=== PATIENT | male | born 1940 | race Caucasian/White ===

== ENCOUNTER → 2019-07-10 09:10 | Outpatient (CLI) | payer MEDICARE, OTHER, SELFPAY ==
--- NOTE | 2019-07-10 | DI.US.S_ITS ---
PROCEDURE: US SCROTUM INDICATIONS: SCROTAL PAIN TECHNIQUE: Real-time scanning was performed of the scrotum and testicles, with image documentation. Color and pulse Doppler interrogation was performed of both testicles. COMPARISON: None. FINDINGS: Right: Testicle is normal in size at 3.8 x 2.8 x 2 cm, and homogenous in echotexture. Scattered microlithiasis can be seen. Epididymis is normal in overall size and morphology. Within the right scrotum, superior to the testicle, there is a cyst seen that measures 2.6 x 2.2 x 1.4 cm. There is a small right-sided varicocele. A mild to moderate right-sided hydrocele is seen. Overlying scrotal skin is normal in thickness. Left: Testicle is normal in size at 2.7 x 1.9 cm, and homogeneous in echotexture. Scattered microlithiasis can be seen on the left. Epididymis is normal in overall size and morphology. There is a small left-sided varicocele. There is a mild to moderate left-sided hydrocele. Overlying scrotal skin is normal in thickness. Doppler: Color and pulse Doppler demonstrate normal and symmetric arterial flow in both testicles. No abnormal vascularity can be seen of the epididymis. IMPRESSION: No abnormal vascularity can be seen of the epididymis on either side to suggest epididymitis. Superior to the right testicle, there is a simple appearing cyst seen that measures up to 2.6 cm. Bilateral orqf-sj-mkruvinw hydroceles are seen. Small bilateral varicoceles are seen. Incidental note is made of bilateral microlithiasis. Dictated by: Morales Obrien M.D. on 07/10/2019 at 9:52 Approved by: Morales Obrien M.D. on 07/10/2019 at 10:31
== END ==
PROVIDERS: Family Provider Family Medicine; PCP Family Medicine; Visit Provider Urology
DX: N43.3 Hydrocele, unspecified (principal); I86.1 Scrotal varices
CPT/HCPCS: 76870

== ENCOUNTER → 2021-06-27 14:24 | Outpatient (CLI) | payer MEDICARE, OTHER, SELFPAY ==
--- NOTE | 2021-06-27 14:28 | DI.ECHO.S_ITS ---
[facility]---------+ [facility] +---------+ : : [address] : [place] : : : : [id number] : : : : Phone: [phone] Echocardiogram Report + + :Name: NILO BROOKS Study Date: 06/27/2021 Height: 69 in : :[facility] ReadingLocation: Weight: 202 lb : : Gender: Male BSA: 2.1 m2 : :: 1940 Age: 80 yrs BP: 125/70 mmHg: :Reason For Study: TACHYCARDIA : :Ordering Physician: PAWEL, : :NILO Performed By: Danny Drummond : :Referring: NILO ARMAS : + + Interpretation Summary The ejection fraction is estimated to be 60-65%. Grade I diastolic dysfunction. The right ventricle is normal in size and function. The left atrium is mildly dilated. The prosthetic aortic valve is well-seated. There is mild perivalvular regurgitation around the prosthetic aortic valve. There is mild aortic regurgitation. Unable to estimate PASP. Procedure: A two-dimensional transthoracic echocardiogram with color flow and Doppler was performed. The study quality was technically difficult. Comparison is made with the echocardiogram of 12/13/2016. Left Ventricle: The left ventricle is normal in size. Left ventricular wall thickness is mildly increased. Left ventricular systolic function is normal. The ejection fraction is estimated to be 60-65%. There are no focal wall motion abnormalities. Diastolic parameters suggest a relaxation abnormality of the left ventricle, consistent with probable normal filling pressures. Right Ventricle: The right ventricle is normal in size and function. Atria: The left atrium is mildly dilated. There is no Doppler evidence for an interatrial shunt. Mitral Valve: There is mild mitral annular calcification. There is trace mitral regurgitation. 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 There is mild perivalvular regurgitation around the prosthetic aortic valve. The prosthetic aortic valve is well-seated. The aortic valve mean gradient is 17 mmHg. The peak aortic velocity is 2.8 m/sec. Valve area difficult to calculate due to limited measurement of the LVOT. DVI = 0.55. There is mild aortic regurgitation. Tricuspid Valve: The tricuspid valve is normal in structure and function. There is trace tricuspid regurgitation. Pulmonary artery pressures cannot be estimated because of the lack of a measurable TR jet velocity but the IVC suggests a CVP of around 3 mmHg. Pulmonic Valve: The pulmonic valve is not well visualized. There is no pulmonic valvular regurgitation. Great Vessels: The aortic root is not well visualized. The ascending aorta could not be visualized. The IVC is of normal diameter and collapses greater than 50% with a sniff. This suggests a low right atrial pressure of 3 mm Hg. Pericardium/ Pleura There is no pericardial effusion. There is no pleural effusion. MMode/2D Measurements & Calculations LVIDd: 5.2 cm LA dimension: 2.8 cm LVIDs: 3.0 cm LA A2 area: 16.3 cm2 FS: 42.3 % LA A4 area: 20.1 cm2 IVSd: 1.3 cm LA length (vol): 5.5 cm LVPWd: 1.0 cm LA vol: 50.2 ml LV erickson. diameter/BSA (cm/m^2): 2.5 LA vol index: 24.2 ml/m2 LV sys. diameter/BSA (cm/m^2): 1.4 RA long axis: 5.2 cm TAPSE_phl: 2.9 cm Doppler Measurements & Calculations Ao V2 max: 277.0 cm/sec LVOT Max Saad: 152.0 cm/sec Ao V2 mean: 192.0 cm/sec LV V1 max P.2 mmHg Ao max P.0 mmHg LV V1 VTI: 33.8 cm Ao mean P.0 mmHg sev ratio: 0.60 Ao V2 VTI: 56.4 cm MV E max saad: 63.4 cm/sec PA V2 max: 106.0 cm/sec MV A max saad: 85.9 cm/sec PA V2 mean: 79.5 cm/sec MV E/A: 0.74 PA mean P.0 mmHg Med Peak E' Saad: 7.0 cm/sec PA pr(Accel): 39.8 mmHg E/E' med: 9.1 Lat Peak E' Saad: 7.7 cm/sec E/E' lat: 8.2 E/e' average: 8.7 MV dec time: 0.34 sec AV VR_phl: 0.55 MV P1/2t-pr_phl: 100.0 msec Reading Physician:05:03 PM
== END ==
PROVIDERS: Family Provider Family Medicine; PCP Family Medicine; Referring Provider Physician Assistant Medical; Visit Provider Physician Assistant Medical
DX: I35.1 Nonrheumatic aortic (valve) insufficiency (principal); I47.2 Ventricular tachycardia; Z95.2 Presence of prosthetic heart valve
CPT/HCPCS: 93306

== ENCOUNTER → 2021-11-02 10:38 | Outpatient (CLI) | payer MEDICARE, OTHER, SELFPAY ==
[2021-11-02 12:49] LABS: COVID19 -Nasal RAPID Negative (Negative)
== END ==
PROVIDERS: Family Provider Family Medicine; PCP Family Medicine; Visit Provider Physician Assistant
DX: Z20.822 Contact with and (suspected) exposure to COVID-19 (principal)
CPT/HCPCS: 87635; C9803

== ENCOUNTER → 2021-11-04 08:19 | Outpatient (CLI) | payer MEDICARE, OTHER, SELFPAY ==
--- NOTE | 2021-11-04 19:16 | DI.NM.S_ITS ---
DATE OF SERVICE: 11/04/2021 PROCEDURE PERFORMED: Exercise treadmill, converted to pharmacologic vasodilator stress and rest myocardial perfusion study with gating to assess ejection fraction and regional wall motion. ORDERING PROVIDER: Dr. Neptali Hansen. 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 CARDIAC STRESS: The patient was initially stressed on the treadmill and was able to complete 3 minutes of a standard Darnell protocol but had a significantly blunted heart rate response, likely due to concurrent beta jonathan therapy, and was able to achieve a maximum heart rate of only 102 BPM (73% of his predicted maximum). He had a normal blood pressure response and denied any chest discomfort. Given his blunted heart rate response, he was given 0.4 mg of regadenoson with a normal hemodynamic response and again had no chest discomfort. His resting ECG shows sinus rhythm with a RBBB and associated ST-segment abnormalities. With stress, there are no significant ST-segment shifts or arrhythmias except for occasional PACs, at times, in a bigeminal pattern. Per protocol, 26.1 millicuries of technetium-99m Myoview was injected and he was imaged 40 minutes later using a gated SPECT acquisition protocol. Earlier in the day while at rest, he had been injected with 14.0 millicuries of technetium- 99m Myoview and was imaged 30 minutes later, again using a quantitated gated SPECT acquisition protocol. FINDINGS: 1. Raw data: There is fairly good myocardial tracer uptake although with clear evidence for diaphragmatic attenuation. The lung/heart ratio is normal at 0.29 with a normal TID ratio of 0.75. 2. Quantitated gated SPECT: The post-stress ejection fraction is estimated at 72% without any focal wall motion abnormality and specifically the inferior wall has normal contractility. The resting ejection fraction is calculated at 72%, as well with a resting end-diastolic volume of 110 mL. 3. Myocardial perfusion imaging: Post-stress supine images show a moderate perfusion defect in the proximal and mid inferior wall, extending into the distal inferior wall, in a pattern consistent with diaphragmatic attenuation artifact, supported by its near-complete resolution on the prone images, although a very subtle defect remains present in the mid inferior wall. The resting images show an identical perfusion pattern without any significant improvement in the inferior wall defect. There are no other perfusion defects. IMPRESSION: 1. Probable normal myocardial perfusion study. 2. Moderate intensity fixed proximal to mid inferior wall perfusion defect that nearly completely resolves on prone imaging, most consistent with diaphragmatic attenuation artifact although previous nontransmural myocardial infarction cannot be entirely excluded. There is no evidence for any myocardial ischemia. 3. Normal left ventricular systolic function without any focal wall motion abnormality and specifically the inferior wall appears to have normal contractility. 4. Significantly reduced exercise capacity with a blunted heart rate response, likely due to beta jonathan therapy, but no angina or ECG evidence of ischemia. He had occasional PACs, but no concerning arrhythmias. Tao Platt - MICHAEL/jordon/bryant doc#: [id number]/job#: [id number] dd: 11/04/2021 17:23:00 dt: 11/04/2021 18:35:00 DICTATING MD/COPIES TO: Oracio Rubio MD; Neptali Hansen MD COPIES MNE: ADOLPH;
== END ==
PROVIDERS: Family Provider Family Medicine; PCP Internal Medicine; Referring Provider Internal Medicine Cardiovascular Disease; Visit Provider Internal Medicine Cardiovascular Disease
DX: I47.2 Ventricular tachycardia (principal); I25.10 Atherosclerotic heart disease of native coronary artery without angina pectoris
CPT/HCPCS: 78452; 93017; A9502; J2785

== ENCOUNTER → 2024-03-06 12:22 | Outpatient (CLI) | payer MEDICARE, OTHER, SELFPAY ==
--- NOTE | 2024-03-06 12:25 | DI.ECHO.S_ITS ---
[facility] +---------+ [facility] : : [address] : : [place] : : [id number] : : Phone: [phone] Echocardiogram Report + + :Name: NILO BROOKS Study Date: 03/06/2024 Height: 69 in : :[facility] ReadingLocation: Weight: 187 lb : : Gender: Male BSA: 2.0 m2 : :: 1940 Age: 83 yrs BP: 132/64 mmHg: :Reason For Study: ATRIAL FIBRILLATION : :Ordering Physician: URSULA, : :ALIVIA Moon Performed By: Duane Mensah : :Referring: ALIVIA VERGARA : + + Interpretation Summary The ejection fraction is estimated to be 65-70%. There is mild concentric left ventricular hypertrophy. There is a bioprosthetic aortic valve. There is mild perivalvular regurgitation around the prosthetic aortic valve. The peak aortic velocity is 2.9 m/sec. The peak aortic velocity on the previous exam was 2.77 m/sec. The right ventricular systolic pressure is estimated to be at least 28 mmHg based on an estimated right atrial pressure of 3 mm Hg. Procedure: A two-dimensional transthoracic echocardiogram with color flow and Doppler was performed. The study quality was technically adequate. Comparison is made with the echocardiogram of 06/27/2021. The patient was in atrial fibrillation with heart rates between 50-81 bpm during the exam. Left Ventricle: The left ventricle is normal in size. There is mild concentric left ventricular hypertrophy. The ejection fraction is estimated to be 65-70%. Left ventricular wall motion is normal. Right Ventricle: The right ventricle is mildly dilated. Right ventricular systolic function is borderline reduced. Atria: The left atrium is mildly dilated. Right atrial size is normal. The interatrial septum grossly appears intact with no obvious evidence for an atrial septal defect. Mitral Valve: The mitral valve is normal in structure and function. There is no mitral valve stenosis. There is trace mitral regurgitation. Aortic Valve: There is a bioprosthetic aortic valve. There is mild perivalvular regurgitation around the prosthetic aortic valve. The peak aortic velocity is 2.9 m/sec. The aortic valve mean gradient is 21.2 mmHg. The peak aortic velocity on the previous exam was 2.77 m/sec. Tricuspid Valve: The tricuspid valve is normal in structure and function. There is no tricuspid stenosis. The right ventricular systolic pressure is estimated to be at least 28 mmHg based on an estimated right atrial pressure of 3 mm Hg. There is a trace or physiologic amount of tricuspid regurgitation. Pulmonic Valve: The pulmonic valve is not well visualized. There is no pulmonic valvular stenosis. There is no pulmonic valvular regurgitation. Great Vessels: The aortic root is not well visualized. The ascending aorta could not be visualized. The IVC is of normal diameter and collapses greater than 50% with a sniff. This suggests a low right atrial pressure of 3 mm Hg. Pericardium/ Pleura There is no pericardial effusion. There is no pleural effusion. MMode/2D Measurements & Calculations LVIDd: 5.3 cm LVOT diam: 2.0 cm LVIDs: 3.3 cm Ao root diam: 3.7 cm FS: 37.1 % Ao Arch Diam (Prox Trans): 2.3 cm IVSd: 1.4 cm LVPWd: 1.3 cm LV erickson. diameter/BSA (cm/m^2): 2.6 LV sys. diameter/BSA (cm/m^2): 1.7 LA A2 area: 26.7 cm2 RA long axis: 4.9 cm LA A4 area: 19.7 cm2 RA area: 16.0 cm2 LA length (vol): 5.6 cm RA vol: 44.2 ml LA vol: 80.3 ml RA : 22.0 ml/m2 LA vol index: 40.0 ml/m2 IVC diam: 1.0 cm RVD1 (basal): 4.3 cm RVD2 (mid): 4.2 cm TAPSE: 1.8 cm Doppler Measurements & Calculations Ao V2 max: 290.0 cm/sec LVOT Max Donovan: 145.9 cm/sec Ao V2 mean: 219.0 cm/sec LV V1 max P.5 mmHg Ao max P.6 mmHg LV V1 VTI: 38.5 cm Ao mean P.2 mmHg DUNG(I,D): 1.8 cm2 Ao V2 VTI: 66.3 cm DUNG(V,D): 1.6 cm2 sev ratio: 0.58 DUNG indexed to BSA (cm^2/m^2): 0.91 MV E max donovan: 70.3 cm/sec TR max donovan: 252.6 cm/sec MV A max donovan: 100.7 cm/sec TR max P.5 mmHg MV E/A: 0.70 PA V2 max: 113.1 cm/sec Med Peak E' Donovan: 6.0 cm/sec PA V2 mean: 80.0 cm/sec E/E' med: 11.7 PA mean P.8 mmHg Lat Peak E' Donovan: 6.0 cm/sec E/E' lat: 11.6 E/e' average: 11.7 MV dec time: 0.26 sec SV([facility]): 120.5 ml Reading Physician:03:23 PM
== END ==
PROVIDERS: Family Provider Family Medicine; PCP Internal Medicine; Referring Provider Physician Assistant; Visit Provider Physician Assistant
DX: I35.1 Nonrheumatic aortic (valve) insufficiency (principal); I48.0 Paroxysmal atrial fibrillation; Z95.2 Presence of prosthetic heart valve
CPT/HCPCS: 93306

== ENCOUNTER → 2025-07-27 09:33 | Outpatient (CLI) | payer MEDICARE, OTHER, SELFPAY ==
--- NOTE | 2025-07-27 09:36 | DI.RAD.S_ITS ---
PROCEDURE: XR LUMBAR SPINE MIN 4V INDICATIONS: BACK PAIN TECHNIQUE: 5 views of the lumbar spine were acquired, including bilateral oblique views. COMPARISON: None. FINDINGS: Bones: 5 nonrib-bearing vertebrae are present. There is mild rightward curvature of lumbar spine with apex at L2 level. No vertebral body compression fractures. Height, degenerative endplate changes and bilateral facet arthrosis throughout lumbar spine is seen. No suspicious bony lesions. Soft tissues: Overlying bowel gas pattern is normal. No suspicious soft tissue calcifications. Oblique images: No pars defects. Bilateral bony foraminal stenosis are noted at L3-4 through L5-S1 levels. IMPRESSION: Dljk-[id number] spondylitic changes throughout lumbar spine is seen. No acute vertebral body compression fracture. Mild rightward curvature of lumbar spine. No gross pars defects. Bilateral bony foraminal stenosis are noted at L3-4 through L5-S1 levels. Dictated by: Patrice Shore M.D. on 07/27/2025 at 10:02 Approved by: Patrice Shore M.D. on 07/27/2025 at 10:04
== END ==
PROVIDERS: Family Provider Family Medicine; PCP Nurse Practitioner Acute Care; Referring Provider Physical Medicine & Rehabilitation; Visit Provider Physical Medicine & Rehabilitation
DX: M47.816 Spondylosis without myelopathy or radiculopathy, lumbar region (principal); M47.817 Spondylosis without myelopathy or radiculopathy, lumbosacral region; M48.061 Spinal stenosis, lumbar region without neurogenic claudication; M48.07 Spinal stenosis, lumbosacral region; M54.9 Dorsalgia, unspecified
CPT/HCPCS: 72110

== ENCOUNTER → 2025-08-12 12:52 | Outpatient (CLI) | payer MEDICARE, OTHER, SELFPAY ==
--- NOTE | 2025-08-12 12:54 | DI.MRI.S_ITS ---
PROCEDURE: MR LUMBAR SPINE WO CON INDICATIONS: low back and right lower limb pain TECHNIQUE: Noncontrast sagittal T1 spin echo and T2 fast echo, sagittal STIR, and T2 fast spin echo through the lumbar spine. In cases with scoliosis, additional coronal T2 fast spin echo may be performed. COMPARISON: [facility], , L-SPINE WITHOUT CONTRAST, 12/12/2017, 12:47. FINDINGS: Image quality: Excellent. Alignment and Curvature: Mild dextrocurvature of the thoracolumbar spine. Bone Marrow: Marrow is of normal overall signal. No acute vertebral body compression fractures. Spinal Cord: Conus medullaris terminates at the L1 level. Visualized cord demonstrates normal signal and size. Paraspinous Soft Tissues: Left adrenal nodule is again noted, not well evaluated. T12-L1: Normal appearance. L1-L2: Disc desiccation. Facet arthropathy. No central canal or neural foraminal stenosis. L2-L3: Disc desiccation and mild height loss is progressed. Worsening posterior disc bulge. Facet arthropathy. Epidural lipomatosis. Mild to moderate central canal stenosis is progressed. Moderate bilateral neural foraminal stenosis is progressed. L3-L4: Disc desiccation and moderate height loss is progressed. Mild disc bulge. Facet arthropathy. Mild central canal stenosis is similar to prior. Moderate bilateral neural foraminal stenosis is stable. L4-L5: Disc desiccation and mild disc bulge. Facet arthropathy. No central canal stenosis. Moderate bilateral neural foraminal stenosis is stable. L5-S1: Mild disc bulge. Disc desiccation. Facet arthropathy. No central canal stenosis. No neural foraminal stenosis. IMPRESSION: 1. Multilevel degenerative changes of the lumbar spine with progression compared to prior as described above. 2. Qvqt-nj-ucnubjub central canal stenosis at L2-L3. 3. Moderate bilateral neural foraminal stenosis at L2-L3, L3-L4 and L4-5. Dictated by: Shabbir Rose M.D. on 08/12/2025 at 14:23 Approved by: Shabbir Rose M.D. on 08/12/2025 at 14:29
== END ==
LOC: MRI 12:53
PROVIDERS: PCP Nurse Practitioner Acute Care; Referring Provider Physical Medicine & Rehabilitation; Visit Provider Physical Medicine & Rehabilitation
DX: M47.26 Other spondylosis with radiculopathy, lumbar region (principal); M47.27 Other spondylosis with radiculopathy, lumbosacral region; M48.061 Spinal stenosis, lumbar region without neurogenic claudication
CPT/HCPCS: 72148

== ENCOUNTER 2025-10-21 10:47 | Outpatient (CLI) | payer MEDICARE, OTHER, SELFPAY ==
[2025-10-21 10:59] VITALS: BP 124/69; PULSE 63; RESP 16; TEMP 36.9; O2SAT 99
[2025-10-21 11:21] VITALS: BP 121/65; PULSE 68; RESP 18; O2SAT 99
[2025-10-21] MEDS: LIDOCAINE 1% (PF) 5 ML 10 ML INJ (11:26)
[2025-10-21 11:36] VITALS: BP 104/54; PULSE 63; RESP 16; O2SAT 98
--- NOTE | 2025-10-21 15:48 | PM.PROC.IR.1 ---
Date/Time/Diagnoses Date of procedure: 10/21/25 Time of procedure: 11:00 Pre-procedure diagnosis: LUMBAR RADICULOPATHY Post-procedure diagnosis: same Procedure Notes Procedure: INTERLAMINAR EPIDURAL STEROID INJECTION L3-4 Indications: LUMBAR RADICULOPATHY Physician: Chace Norman Total sedation minutes: 0 Complications: none Procedure in detail & Post-procedure care: Patient is here for the planned procedure today as noted. No significant change since the last office visit. For additional clinical scenario please see those office notes. Focused exam: Vital signs reviewed as charted on intake. Gen: Well developed. No acute distress. CV: RRR, no M/R/G Chest: Non-labored breathing, CTAB. Psych: Alert and well-oriented. Mood/Affect: normal. Patient suitable for the planned procedure today: Yes === The following procedure was performed in the office today: Lumbar Epidural Steroid Injection with fluoroscopic guidance - Interlaminar approach ([id number]) Levels Treated: L3-4 Approach: interlaminar Soft tissue: [1% lidocaine 2 mL] Test dose: [1% lidocaine 1 mL] Injectate: 1.5 mL of dexamethasone (10mg/mL) in 1.25 mL 1% lidocaine and 1.25 mL normal saline Fluoroscopy Agent: Isovue 300-M 1.5 mL Notes: 1- Note he is on Plavix, held for the procedure, last dose 6:30 a.m. 10/16/2025, and Xarelto, also held for the procedure, last dose 10/16/2025 at 6:00 p.m.. He may resume these 6 hours postprocedure. 2- Right paramedian. 3.5 in 20 gauge Touhy needle utilized and adequate. Preprocedure pain 3/10, postprocedure pain 0/10. Procedure: After discussing the risks, benefits, and alternatives to the procedure, the patient expressed understanding and wished to proceed. The risks include but are not limited to infection, allergic reaction, nerve damage, stroke, paralysis, epidural hematoma, syncope, headache, respiratory or cardiac arrest, spinal cord injury, and scar formation. Informed consent was obtained and all patient questions were answered. The patient was brought to the procedure suite and placed in the prone position. A pre-procedural pause was conducted to verify: correct patient identity, procedure to be performed and as applicable, correct side and site, correct patient position, and any special requirements. Using a paramedian approach from the side noted above, the region overlying the target was localized under fluoroscopic visualization and the soft tissues overlying this structure were infiltrated with the anesthetic listed above. With fluoroscopic guidance, a #20 gauge Tuohy needle (unless otherwise noted) was inserted into the epidural space using a paramedian approach. The epidural space was localized utilizing intermittent multiplanar fluoroscopic guidance and loss of resistance technique. After negative aspiration, the contrast noted above was injected into the epidural space and the flow of contrast was observed, confirming epidural spread without evidence of intravascular or intrathecal spread. Multi-planar radiographs were obtained for documentation purposes. A test dose of lidocaine was injected into the above noted epidural space, and the patient was observed for 30-60 seconds. No sensory deficits were reported and normal lower extremity motor function was noted. Subsequently, the injectate as noted above was administered into the level noted above. The patient tolerated the procedure well and was discharged after an appropriate period of observation. If there are any complications, the patient was instructed to call us. The patient is to follow-up with the requesting provider in 2-3 weeks. This note was compiled using voice recognition software and therefore may contain typos. Please contact the author with any questions or concerns.
== END 2025-10-21 11:40 | disposition home or self-care (01) ==
LOC: RAD 10:48
PROVIDERS: PCP Nurse Practitioner Acute Care; Referring Provider Physical Medicine & Rehabilitation; Visit Provider Physical Medicine & Rehabilitation
DX: M54.16 Radiculopathy, lumbar region (principal)
CPT/HCPCS: 62323; 82962